=== PATIENT | male | born 1955 | race Caucasian/White ===

== ENCOUNTER 2023-11-02 23:28 | Emergency (ER) | payer BC, SELFPAY ==
[2023-11-02 23:37] VITALS: BP 139/73
[2023-11-03 00:38] VITALS: BP 130/73
[2023-11-03 00:48] LABS: % Basophils 0.6 % (0-2); % Eosinophils 1.6 % (0-6); % Immature Granulocytes 0.5 % (0-0.5); % Lymphocytes 29.5 % (20.5-51.1); % Monocytes 9.9 % (1.7-9.3); % Neutrophils 57.9 % (42.2-75.2); Absolute Basophils 0.1 10^3/uL (0-0.2); Absolute Eosinophils 0.2 10^3/uL (0-0.7); Absolute Immature Granulocytes 0.1 10^3/uL (0-0.05); Absolute Lymphocytes 2.8 10^3/uL (1.2-3.4); Absolute Monocytes 0.9 10^3/uL (0.1-0.6); Absolute Neutrophils 5.4 10^3/uL (1.4-6.5); Hematocrit 38.5 % (39.0-52.0); Hemoglobin 13.2 g/dL (13.0-18.0); Mean Corp Hgb Conc. 34.3 g/dL (33.0-37.0); Mean Corpuscular Hgb 28.5 pg (27.0-31.0); Mean Corpuscular Volume 83.2 fL (80.0-94.0); Mean Platelet Volume 9.2 fL (7.4-10.4); Nucleated Red Blood Cells % 0 % (-); Platelet Count 208 10^3/uL (130-400); Red Blood Cell Count 4.63 10^6/uL (4.70-6.10); Red Cell Dist. Width 13.7 % (11.5-14.5); White Blood Cell Count 9.4 10^3/uL (4.8-10.8)
[2023-11-03 01:03] LABS: ALT (SGPT) 25 U/L (0-50); AST (SGOT) 28 U/L (17-59); Albumin 4.2 g/dl (3.5-5.0); Alkaline Phosphatase 65 U/L (38-126); Blood Urea Nitrogen 24 mg/dl (9-20); Carbon Dioxide 30 mmol/L (22-30); Chloride 103 mmol/L (98-107); Glucose 108 mg/dl (70-99); Potassium 4.1 mmol/L (3.5-5.1); Sodium 139 mmol/L (135-145); Total Bilirubin 0.6 mg/dl (0.2-1.3); Total Protein 6.8 g/dl (6.3-8.2); eGFR > 60.00
[2023-11-03 01:30] VITALS: BP 140/89
[2023-11-03 01:44] VITALS: BMI 29.1
--- NOTE | 2023-11-03 02:16 | ED.GENMED ---
History of Present Illness
General
Chief Complaint: Blood Pressure Problem
Source: patient and spouse
Exam Limitations: none
Time Seen by Provider: 11/03/23 01:43
Nursing documentation reviewed up to this point in time: agreed with
History of Present Illness
History of Present Illness:
This a pleasant 68-year-old male that presents with high blood pressure. Patient has been working with his family doctor, Dr. Martha Montana who has been adjusting his medications. Tonight he states that he felt a slight headache so he checked his
blood pressure. He he reports that it was elevated. He went to lie down and within 5 minutes a recheck showed that the blood pressure was back to normal. He states that he has not had any symptoms since he has been here. Denies recent illness.
Denies fever, chills, nausea or vomiting.
Past History
Past History
ED Past Medical History: Negative HTN
ED Past Surgical History: None
Social History
Tobacco: Non-smoker
Personal:
Living: with family
Employment: Employed
Review of Systems
Review of Systems
Allergies reviewed?: Yes
Other source history: family
All Other Systems: ROS reviewed and negative except as documented in HPI and ROS
Constitutional: Reports no symptoms
EENT: Reports no symptoms
Respiratory: Reports no symptoms
Cardiac: Reports no symptoms
ABD/GI: Reports no symptoms
: Reports no symptoms
Musculoskeletal: Reports no symptoms
Skin: Reports no symptoms
Neurological: Reports headache
Endocrine: Reports no symptoms
Hematologic/Lymphatic: Reports no symptoms
Psychiatric: Reports no symptoms
Phy Exam
General Physical Exam
General Presentation: well appearing and no apparent distress
General Skin: warm and dry
General Habitus: normal
General Mental: alert
General Hydration: appears well hydrated
ENT Exam
ENT Exam: EOMI, pharynx normal, neck supple and normocephalic
Eye Exam
Eye Exam: PERRL, cornea clear and conjunctiva normal
Cardiovascular Exam
Cardiovascular Exam: regular rate/rhythm, no edema, no murmur and normal peripheral pulses
Pulmonary Exam
Pulmonary Exam: lungs clear, no respiratory distress, no rales, no crackles, no rhonchi, no stridor, no wheezing and no cough
Gastrointestinal Exam
Gastrointestinal Exam: normal bowel sounds, non tender, soft, no organomegaly, no pulsatile mass and non distended
Neurological Exam
Neurological Exam: alert, oriented x3, no motor deficits and speech normal
Musculoskeletal Exam
Musculoskeletal Exam: full ROM and no edema
Skin Exam
Skin Exam: normal color, warm/dry, no rash and no petechia
Psychiatric Exam
Psychiatric Exam: normal mood/affect
Course
Orders/Labs/Results
Orders:
Orders
11/03/23 00:43
CMP [Comprehensive Metabolic Panel] Urgent
Complete Blood Count/With Diff Urgent
Abnormal Lab Results
11/03/23
00:43
RBC 4.63 L 10^6/uL
(4.70-6.10)
Hct 38.5 L %
(39.0-52.0)
Abs Immat Gran (auto) 0.1 H 10^3/uL
(0-0.05)
Absolute Monos (auto) 0.9 H 10^3/uL
(0.1-0.6)
Monocytes % 9.9 H %
(1.7-9.3)
BUN 24 H mg/dl
(9-20)
Glucose 108 H mg/dl
(70-99)
11/03/23 00:43
11/03/23 00:43
Vital Signs
Initial and Last Documented VS:
Initial Vital Signs
Pulse Resp BP Pulse Ox
71 18 139/73 96
11/02/23 23:37 11/02/23 23:37 11/02/23 23:37 11/02/23 23:37
Last Documented Vital Signs
Pulse Resp BP Pulse Ox
70 18 140/89 100
11/03/23 01:30 11/03/23 01:30 11/03/23 01:30 11/03/23 01:30
*Pulse Oximetry
Patient hypoxic: no
*Critical Care Note
Total Time (30-74mins, 75-104mins- exclusive of procedures): Not Applicable
ED Attending Note
-
Portions of this chart may have been created with voice recognition software.� Occasional wrong word or��sound alike� substitutions may have occurred due to the inherent limitations of voice recognition software.
Discharge Plan
Departure
Patient Disposition: Home (Routine Discharge)
Date of Disposition: 11/03/23
Time of Disposition: 02:18
Patient with high blood pressure during this ER visit?: Yes
Condition: Good
Discharge Problem:
Hypertension
Instructions: High Blood Pressure (DC), BLOOD PRESSURE
Prescriptions:
No Action
atorvastatin 40 mg Tablet
40 mg PO DAILY
tamsulosin 0.4 mg Capsule
0.4 mg PO DAILY
hydrochlorothiazide 12.5 mg Capsule
12.5 mg PO DAILY
lisinopril 40 mg Tablet
40 mg PO DAILY
sertraline 50 mg Tablet
50 mg PO DAILY
finasteride 5 mg Tablet
5 mg PO DAILY
Referrals:
Martha Montana DO [Family Provider] -
Interventions
Interventions:
*General Assessment Last Done: 11/03/23 01:30
*Neglect/Abuse Screening Last Done: 11/03/23 01:30
ED- Fall Risk Assessment Last Done: 11/03/23 01:30
*ED COVID-19 Vaccine History Last Done: 11/03/23 01:30
ED- Cardiac Assessment Last Done: 11/03/23 01:30
ED- Neurological Assessment Last Done: 11/03/23 01:30
ED- Pulmonary Assessment Last Done: 11/03/23 01:30
Discharge Date and Time
Print Language: [place]
== END 2023-11-03 02:23 | disposition home or self-care (01) ==
LOC: EMR 23:28
PROVIDERS: EMERGENCY PHYSICIAN Student in an Organized Health Care Education/Training Program; FAMILY PHYSICIAN Internal Medicine
DX: I10 Essential (primary) hypertension (principal); R51.9 Headache, unspecified
CPT/HCPCS: 99283; 80053; 85025